=== PATIENT | female | born 1990 | race Caucasian/White ===

== ENCOUNTER 2021-08-13 05:51 | Day surgery (SDC) | payer MEDICAID, OTHER ==
[2021-08-13 06:29] VITALS: BMI 28.3
[2021-08-13] MEDS ORDERED: Butorphanol Tartrate 1 MG/ML VIAL SLOW IVP PRN (07:13)
[2021-08-13] MEDS ORDERED: hydrALAZINE 20 MG/ML VIAL SLOW IVP PRN (07:13)
[2021-08-13] MEDS ORDERED: Lactated Ringer's 1,000 ML IV SCH (07:15)
== END 2021-08-13 09:28 | disposition home or self-care (01) ==
LOC: CSHLD/OP 05:51
PROVIDERS: ATTEND Student in an Organized Health Care Education/Training Program
DX: O47.1 False labor at or after 37 completed weeks of gestation (principal); O99.013 Anemia complicating pregnancy, third trimester; Z3A.39 39 weeks gestation of pregnancy; Z79.899 Other long term (current) drug therapy; Z91.040 Latex allergy status; Z91.048 Other nonmedicinal substance allergy status
CPT/HCPCS: J0595

== ENCOUNTER 2021-08-13 14:36 | Inpatient (IN) | payer OTHER ==
[2021-08-13] MEDS: Lactated Ringer's 1,000 ML IV SCH (15:05)
[2021-08-13] MEDS ORDERED: Fentanyl 2 mcg/Bup 0.1% Cadd 100 ML ONE ×2 (15:08→22:31)
[2021-08-13] MEDS ORDERED: Penicillin G Potassium 5 MILL.UNITS VIAL ONE (15:15)
[2021-08-13 15:22] VITALS: BMI 28.3
[2021-08-13] MEDS ORDERED: hydrALAZINE 20 MG/ML VIAL SLOW IVP PRN (15:28)
[2021-08-13] MEDS ORDERED: HYDROcodone/Acetaminophen 5/325 mg Tablet PO PRN (15:28)
[2021-08-13] MEDS ORDERED: Butorphanol Tartrate 1 MG/ML VIAL SLOW IVP PRN (15:28)
[2021-08-13] MEDS ORDERED: Diphenoxylate HCl/Atropine Tablet PO PRN (15:28)
[2021-08-13] MEDS ORDERED: Lidocaine 1% (PF) 30 ML VIAL SC PRN (15:28)
[2021-08-13] MEDS ORDERED: Methylergonovine 0.2 MG/ML VIAL IM PRN (15:28)
[2021-08-13] MEDS ORDERED: Misoprostol 200 MCG TAB PR PRN (15:28)
[2021-08-13] MEDS ORDERED: Ondansetron PF 4 MG/2 ML Vial IVP PRN ×2 (15:28→17:28)
[2021-08-13] MEDS ORDERED: Promethazine HCl 25 MG/ML VIAL IM PRN ×2 (15:28→17:28)
[2021-08-13] MEDS ORDERED: Carboprost 250 MCG/ML AMP IM PRN (15:28)
[2021-08-13] MEDS ORDERED: Ibuprofen 800 MG TAB PO PRN (15:28)
[2021-08-13] MEDS ORDERED: Acetaminophen 500 MG TAB PO PRN (15:28)
[2021-08-13 15:29] LABS: Hemoglobin 14.1 g/dL (12.0-15.5); Mean Corpuscular HGB CONC 35.5 g/dL (32.0-36.0); Mean Corpuscular Hemoglobin 31.2 pg (27.0-33.0); Mean Corpuscular Volume 87.8 fl (81.6-98.3); Mean Platelet Volume 11.6 fl (7.4-10.4); Platelet Count 202 10x3/uL (150-450); RBC Distribution Width 12.2 % (11.5-14.5); Red Blood Cell (RBC) Count 4.52 10x6/uL (3.90-5.03); White Blood Cell (WBC) Count 17.1 10x3/uL (3.5-10.5)
[2021-08-13] MEDS ORDERED: NS w/ Oxytocin 30 units 500 ML IV SCH (15:30)
[2021-08-13] MEDS ORDERED: Penicillin G Potassium 5 MILL.UNITS in Sodium Chloride 0.9% 100 ML IVPB SCH (15:30)
[2021-08-13 16:14] LABS: HIV (1/2) Antibody/Antigen Non-Reactive (NonReactive); HIV 1/2 INDEX 0.07 S/CO (<1.00); Hep B Surf Ag Non-Reactive S/CO (NonReactive)
[2021-08-13 16:15] LABS: Syphilis Antibody Nonreactive (Nonreactive); Syphilis Antibody Index 0.03 S/CO (<1.00 Non-Reactive)
[2021-08-13 16:16] LABS: HBSAg Index 0.17 S/CO (0-0.99)
[2021-08-13] MEDS ORDERED: Lactated Ringer's 500 ML IV PRN (17:28)
[2021-08-13] MEDS ORDERED: Acetaminophen 325 MG TAB PO PRN (17:28)
[2021-08-13] MEDS ORDERED: Hydrocerin (Eucerin) Cream 120 gm Jar TOP PRN (17:28)
[2021-08-13] MEDS ORDERED: ePHEDrine Sulfate 50 MG/10 ML VIAL SLOW IVP PRN (17:28)
[2021-08-13] MEDS ORDERED: diphenhydrAMINE 50 MG/ML VIAL IVP PRN (17:28)
[2021-08-13] MEDS ORDERED: Naloxone HCl 0.4 mg/ml Vial IVP PRN ×2 (17:28)
[2021-08-13] MEDS ORDERED: Fentanyl 2 mcg/Bupivacaine 0.1% Cassette 100 ML EPIDURAL SCH (17:30)
[2021-08-13] MEDS ORDERED: Communication Order-Pharmacy FS SCH (17:30)
[2021-08-13 18:28] LABS: SARS-CoV-2 NAA Rapid Test Not Detected (NotDetected)
[2021-08-13] MEDS: Penicillin G 2.5 MILL.units 2.5 MILL.UNITS in Premix Bag 1 BAG IVPB SCH (19:30)
[2021-08-13] MEDS ORDERED: Lidocaine 1% (PF) 30 ML VIAL ONE (21:00)
[2021-08-13] MEDS ORDERED: NS w/ Oxytocin 30 units 500 ML ONE (21:01)
[2021-08-13] MEDS ORDERED: Calcium Carbonate 500 MG ChewTAB PO PRN (22:19)
[2021-08-14] MEDS ORDERED: Preparation H Ointment 28 GM TUBE PR PRN (02:08)
[2021-08-14] MEDS ORDERED: Ondansetron PF 4 MG/2 ML Vial IVP PRN (02:08)
[2021-08-14] MEDS ORDERED: diphenhydrAMINE 25 MG CAP PO PRN (02:08)
[2021-08-14] MEDS ORDERED: Boostrix 0.5 ML (Tdap) VIAL IM ONE (02:08)
[2021-08-14] MEDS ORDERED: Bisacodyl 10 MG SUPP PR PRN (02:08)
[2021-08-14] MEDS ORDERED: Benzocaine-Menthol 82.5 ML CAN TOP PRN (02:08)
[2021-08-14] MEDS ORDERED: hydrALAZINE 20 MG/ML VIAL SLOW IVP PRN (02:08)
[2021-08-14] MEDS ORDERED: HYDROcodone/Acetaminophen 5/325 mg Tablet PO PRN (02:08)
[2021-08-14] MEDS ORDERED: Milk Of Magnesia 30 ML UDCUP PO PRN (02:08)
[2021-08-14] MEDS ORDERED: Lanolin Ointment 7 GM TUBE TOP PRN (02:08)
[2021-08-14] MEDS ORDERED: Promethazine HCl 25 MG/ML VIAL IM PRN (02:08)
[2021-08-14] MEDS: Ibuprofen 800 MG TAB PO SCH ×3 (05:22→22:02)
[2021-08-14] MEDS: Docusate 100 MG CAP PO SCH ×2 (08:23→22:02)
[2021-08-14] MEDS: Prenatal Vitamin 1 TAB PO SCH (08:23)
[2021-08-14] MEDS: HYDROcodone/Acetaminophen 5/325 mg Tablet PO PRN ×3 (08:24→17:06)
[2021-08-14] MEDS: Ferrous Sulfate 325 MG TAB PO SCH ×2 (08:32→13:39)
[2021-08-14] MEDS: Lactated Ringer's 1,000 ML IV SCH (20:46)
[2021-08-14] MEDS: Penicillin G 2.5 MILL.units 2.5 MILL.UNITS in Premix Bag 1 BAG IVPB SCH (20:47)
[2021-08-15] MEDS: Ibuprofen 800 MG TAB PO SCH ×2 (05:48→13:05)
[2021-08-15 07:51] VITALS: BP 110/69; TEMP 98
[2021-08-15] MEDS: Ferrous Sulfate 325 MG TAB PO SCH ×2 (08:33→17:01)
[2021-08-15] MEDS: Docusate 100 MG CAP PO SCH (08:36)
[2021-08-15] MEDS: Prenatal Vitamin 1 TAB PO SCH (08:36)
== END 2021-08-15 16:40 | disposition home or self-care (01) | DRG 807 ==
LOC: CSHLD 14:36 → CSHPP 08-14 01:44
PROVIDERS: ADMIT Student in an Organized Health Care Education/Training Program; ATTEND Student in an Organized Health Care Education/Training Program
PROC: 10E0XZZ Delivery of Products of Conception, External Approach (ICD-10-PCS; principal; 2021-08-13)
PROC: 0HQ9XZZ Repair Perineum Skin, External Approach (ICD-10-PCS; 2021-08-13)
PROC: 10907ZC Drainage of Amniotic Fluid, Therapeutic from Products of Conception, Via Natural or Artificial Opening (ICD-10-PCS; 2021-08-13)
DX: O99.824 Streptococcus B carrier state complicating childbirth (principal); Z37.0 Single live birth; Z20.822 Contact with and (suspected) exposure to COVID-19; Z3A.39 39 weeks gestation of pregnancy; O70.0 First degree perineal laceration during delivery
CPT/HCPCS: 51702; 85027; 86780; 86850; 86900; 86901; 87340; 87389; 96360; 96375; 99283; J0595; J2540; J2590; J3490; J7120; U0002